=== PATIENT | female | born 1930 | race Caucasian/White ===

== ENCOUNTER 2016-09-23 11:52 | Inpatient (IN) | payer MEDICARE ==
[2016-09-23 12:29] LABS: RED BLOOD COUNT 4.76 M/UL (4.00-5.10); WHITE BLOOD COUNT 7.5 K/UL (4.5-11.0)
[2016-09-23] MEDS ORDERED: LYRICA100 MG PO (22:40)
[2016-09-23] MEDS ORDERED: ULTRAM50 MG PO (22:41)
[2016-09-23] MEDS ORDERED: BENICAR40 MG PO (22:43)
[2016-09-23] MEDS ORDERED: COLACE100 MG PO (22:43)
[2016-09-23] MEDS ORDERED: ZETIA10 MG PO (22:44)
[2016-09-23] MEDS ORDERED: PANTOPRAZOLE SO20 MG PO (22:44)
[2016-09-23] MEDS ORDERED: VSL#3 CAPSULE1 EACH PO (22:47)
[2016-09-24 04:32] LABS: HEMOGLOBIN 12.2 gm/dl (12.3-15.3); WHITE BLOOD COUNT 7.9 K/UL (4.5-11.0)
[2016-09-24 04:34] LABS: RED BLOOD COUNT 4.25 M/UL (4.00-5.10)
[2016-09-24 04:57] LABS: BUN/CREATININE RATIO 16 (0-10)
[2016-09-25 05:10] LABS: BUN/CREATININE RATIO 18 (0-10)
[2016-09-26 05:19] LABS: HEMOGLOBIN 12.3 gm/dl (12.3-15.3); RED BLOOD COUNT 4.32 M/UL (4.00-5.10)
[2016-09-26 05:23] LABS: WHITE BLOOD COUNT 5.4 K/UL (4.5-11.0)
[2016-09-27] MEDS ORDERED: TAMIFLU 75 MG C75 MG PO (18:26)
[2016-09-27] MEDS ORDERED: AUGMENTIN 500-500 MG PO (18:31)
[2016-09-27] MEDS ORDERED: BACTROBAN NASAL1 G1 (18:37)
== END 2016-09-27 19:19 | disposition home or self-care (01) | DRG 193 ==
LOC: ER1 11:52 → ZEROF 16:40 → PROG CARE 16:40 → MED SURG 4 09-26 21:48
PROVIDERS: Emergency Medicine; Internal Medicine; ADMIT Hospitalist
DX: J09.X1 Influenza due to identified novel influenza A virus with pneumonia (principal); J96.01 Acute respiratory failure with hypoxia; E87.1 Hypo-osmolality and hyponatremia; J18.8 Other pneumonia, unspecified organism; R91.1 Solitary pulmonary nodule; I10 Essential (primary) hypertension; Z22.321 Carrier or suspected carrier of Methicillin susceptible Staphylococcus aureus; S42.122 Displaced fracture of acromial process, left shoulder; W19.XXXD Unspecified fall, subsequent encounter; M48.54XS Collapsed vertebra, not elsewhere classified, thoracic region, sequela of fracture; K21.9 Gastro-esophageal reflux disease without esophagitis; E78.5 Hyperlipidemia, unspecified; M81.0 Age-related osteoporosis without current pathological fracture; R59.1 Generalized enlarged lymph nodes; Z79.1 Long term (current) use of non-steroidal anti-inflammatories (NSAID); Z79.899 Other long term (current) drug therapy; Z88.6 Allergy status to analgesic agent; Z90.49 Acquired absence of other specified parts of digestive tract; Z98.890 Other specified postprocedural states; Z80.3 Family history of malignant neoplasm of breast; Z82.0 Family history of epilepsy and other diseases of the nervous system
CPT/HCPCS: 36415; 71010; 71020; 71250; 80048; 80053; 80202; 82550; 82553; 83605; 83735; 83874; 83880; 84146; 84484; 85025; 85027; 87040; 87081; 87278; 87899; 93005; 94640; 94664; 96365; 96375; 99285; J0456; J0696; J1956; J2543; J3370; J7030; J7050; J7070

== ENCOUNTER → 2016-10-05 | Outpatient (CLI) | payer MEDICARE ==
[~2016-10-05] MED LIST: AUGMENTIN 500-500 MG PO; BACTROBAN NASAL1 G1; BENICAR40 MG PO; COLACE100 MG PO; LYRICA100 MG PO; PANTOPRAZOLE SO20 MG PO; TAMIFLU 75 MG C75 MG PO; ULTRAM50 MG PO; VSL#3 CAPSULE1 EACH PO; ZETIA10 MG PO
== END ==
LOC: KOH-I 08:59
DX: J18.9 Pneumonia, unspecified organism (principal); R91.1 Solitary pulmonary nodule
CPT/HCPCS: 71020

== ENCOUNTER → 2017-01-25 | Outpatient (CLI) | payer MEDICARE ==
[~2017-01-25] VITALS: Ht 152.4 cm; Wt 63.5 kg
== END ==
LOC: OPSV 10:30
DX: K90.49 Malabsorption due to intolerance, not elsewhere classified (principal); M81.0 Age-related osteoporosis without current pathological fracture
CPT/HCPCS: 96365; J3489; J7050

== ENCOUNTER 2021-05-20 07:01 | Emergency (ER) | payer MEDICARE ==
[~2021-05-20 07:01] MED LIST changes: +CEFUROXIME500 MG PO
== END 2021-05-20 08:25 | disposition home or self-care (01) ==
LOC: ER1 07:01
DX: S00.03XA Contusion of scalp, initial encounter (principal); S00.83XA Contusion of other part of head, initial encounter; I10 Essential (primary) hypertension; G30.9 Alzheimer's disease, unspecified; R00.1 Bradycardia, unspecified; E78.5 Hyperlipidemia, unspecified; W22.8XXA Striking against or struck by other objects, initial encounter
CPT/HCPCS: 70450; 72125; 93005; 99284